=== PATIENT | female | born 2000 | race Caucasian/White ===

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

== ENCOUNTER 2020-01-08 08:43 | Day surgery (SDC) | payer OTHER ==
[2020-01-03 13:51] VITALS: BMI 22.1
[2020-01-08 10:17] VITALS: BP 101/58; PULSE 80; TEMP 98
== END 2020-01-08 10:30 | disposition home or self-care (01) ==
LOC: FASU-ENDO 08:43
PROVIDERS: ATTEND Internal Medicine Gastroenterology
PROC: 0DJD8ZZ Inspection of Lower Intestinal Tract, Via Natural or Artificial Opening Endoscopic (ICD-10-PCS; principal; 2020-01-08 09:28)
DX: K62.5 Hemorrhage of anus and rectum (principal); K64.8 Other hemorrhoids
CPT/HCPCS: 84703

== ENCOUNTER 2022-03-27 19:33 | Emergency (ER) | payer OTHER ==
[2022-03-27 19:51] VITALS: BP 112/65; PULSE 90; TEMP 99; BMI 23.1
[2022-03-27 20:53] LABS: HEMATOCRIT 37.6 % (32.4-45.2); HEMOGLOBIN 13.1 G/dL (10.7-15.3); MCH 29.5 pg (25.7-33.7); MCHC 34.9 g/dl (32.0-36.0); MEAN CELL VOLUME 84.6 fl (80-96); MEAN PLT VOLUME 7.9 fl (7.5-11.1); PLATELET COUNT 309.8 10^3/uL (134-434); RBC 4.44 10^6/uL (3.60-5.2); RDW 14.6 % (11.6-15.6); WHITE BLOOD COUNT 7.2 10^3/uL (4.0-10.8)
[2022-03-27 20:57] LABS: ALBUMIN 3.9 g/dl (3.4-5.0); BILIRUBIN,TOTAL 0.6 mg/dl (0.2-1); CALCIUM 9.2 mg/dl (8.5-10); CREATININE 0.8 mg/dl (0.55-1.3); TOT PROT 7.1 g/dl (6.4-8.2)
[2022-03-27] MEDS ORDERED: MAGNESIUM CITRATE 300 ML BOTTLE PO ONE (21:04)
== END 2022-03-27 21:20 | disposition home or self-care (01) ==
LOC: FER 19:33
DX: K59.00 Constipation, unspecified (principal)
CPT/HCPCS: 36415; 74019-TC-FY; 80053; 81025; 85025; 99284-25